=== PATIENT | male | born 1945 | race African-American/Black ===

== ENCOUNTER 2016-09-05 06:03 | Day surgery (SDC) | payer BC, OTHER ==
[2016-09-03 10:33] VITALS: BMI 28.7
[2016-09-05] MEDS ORDERED: PROPOFOL 20 ML ONE ×3 (06:51→09:20)
[2016-09-05 09:58] VITALS: TEMP 97.8
[2016-09-05 10:26] VITALS: BP 167/64; PULSE 52
--- NOTE | 2016-09-10 11:53 | PATH ---
Surgical Pathology Report Patient Name: CARLOS ROQUE [facility]. Rec. #: [id number] /Age/Gender: 1945 (Age: 70) / M Account: [id number] Location: [facility]-ENDOSCOPY Taken: 09/05/2016 Received: 09/05/2016 Reported: 09/10/2016 Physicians: Kennedy Johns M.D. Specimen(s) Received A: BX DUODENUM B: BX ANTRUM Clinical History Peptic ulcer disease, history of polyps Mild gastritis, rule out celiac disease Final Diagnosis A. DUODENUM, BIOPSY: DUODENAL MUCOSA WITH NO PATHOLOGIC FINDINGS. Note: Features suggestive of celiac disease are not identified in this biopsy. B. ANTRUM, BIOPSY: MODERATE CHRONIC GASTRITIS. IMMUNOSTAIN IS NEGATIVE FOR H. PYLORI ORGANISMS. Electronically Signed Carmen Canales M.D. Gross Description A. Received in formalin, labeled "duodenum" is a kasper, irregular portion of soft tissue measuring 0.3 cm. in greatest dimension. The specimen is submitted in toto in one cassette. B. Received in formalin, labeled "antrum" are 2 kasper, irregular portions of soft tissue measuring 0.3 and 0.4 cm. in greatest dimension. The specimens are submitted in toto in one cassette. 09/05/201609/05/2016
== END 2016-09-05 10:25 | disposition home or self-care (01) ==
LOC: FASU-ENDO 06:03
PROVIDERS: ATTEND Internal Medicine Gastroenterology
PROC: 0DJD8ZZ Inspection of Lower Intestinal Tract, Via Natural or Artificial Opening Endoscopic (ICD-10-PCS; 2016-09-05)
PROC: 0DB98ZX Excision of Duodenum, Via Natural or Artificial Opening Endoscopic, Diagnostic (ICD-10-PCS; principal; 2016-09-05 09:11)
PROC: 0DB68ZX Excision of Stomach, Via Natural or Artificial Opening Endoscopic, Diagnostic (ICD-10-PCS; 2016-09-05 09:11)
DX: Z86.010 Personal history of colon polyps (principal); K57.30 Diverticulosis of large intestine without perforation or abscess without bleeding; K64.8 Other hemorrhoids; K29.50 Unspecified chronic gastritis without bleeding
CPT/HCPCS: 43239; G0105; 88305-TC; 88342-TC